=== PATIENT | female | born 1960 | race Caucasian/White ===

== ENCOUNTER 2019-02-24 14:25 | Observation (INO) ==
--- NOTE | 2019-02-24 14:35 | Emergency Department Note ---
Disposition Clinical Impression: Hypoglycemia, Acute kidney injury Disposition: Admitted As Inpatient Condition: Serious Referrals: Kenneth Syed, PAC [Primary Care Provider] - Time of Disposition: 17:43 General Adult HPI - General Stated complaint: Unresponsive Time Seen by Provider: 02/24/19 14:31 Source: EMS Limitations: no limitations Nursing Notes Reviewed: Yes Vital Signs Reviewed: Yes - History of Present Illness HPI Narrative: Patient presents to the ED after being found unresponsive. Neighbors broke into her house and they found her unresponsive. EMS states that they checked her glucose and it read low. She became more alert after some D10. Patient is unsure what meds she is on for diabetes. Medics states she was diagnosed one year ago. Pain Scale: 0 - Related Data Home Medications Medication Instructions Recorded Confirmed Metoprolol [Lopressor] 25 mg PO BID 10/10/15 10/10/15 Naproxen [Naprosyn] 500 mg PO BID 10/10/15 10/10/15 Amlodipine Besylate 10 mg PO DAILY 02/24/19 02/24/19 Aspirin [Lo-Dose Aspirin EC] 81 mg PO DAILY 02/24/19 02/24/19 Atorvastatin [Lipitor] 10 mg PO DAILY 02/24/19 02/24/19 BuPROPion SR (12 HR) [Wellbutrin 150 mg PO BID 02/24/19 02/24/19 SR] Budesonide/Formoterol 160/4.5 2 puff IH BIDR 02/24/19 02/24/19 [Symbicort 160/4.5] Escitalopram [Lexapro] 10 mg PO DAILY 02/24/19 02/24/19 Gabapentin [Neurontin] 300 mg PO QAM 02/24/19 02/24/19 Gabapentin [Neurontin] 600 mg PO HS 02/24/19 02/24/19 Glimepiride [Amaryl] 2 mg PO DAILY 02/24/19 02/24/19 Lisinopril/Hydrochlorothiazide 1 each PO DAILY 02/24/19 02/24/19 [Zestoretic 10-12.5 mg Tablet] Metformin HCl [Glucophage] 1,000 mg PO BID 02/24/19 02/24/19 Previous Rx's Medication Instructions Recorded Albuterol Sulfate [Ventolin Hfa] 2 puff IH Q4H PRN #1 hfa.aer.ad 03/21/17 Allergies Allergy/AdvReac Type Severity Reaction Status Date / Time codeine Allergy See Verified 10/04/15 14:17 Comments All systems ED: reviewed and negative except as stated. Constitutional: Denies: fever Cardiovascular: Denies: chest pain Respiratory: Denies: dyspnea Gastrointestinal: Reports: nausea Past Medical History - Past Medical History Attestation: Yes The following information was validated with the patient. Source: patient Medical history: Reports: asthma, diabetes, hyperlipidemia, hypertension Psychiatric history: Reports: no psych history SHOWCASE [employer]ER history: Reports: no SHOWCASE [employer]ER history - Social History Smoking Status: Current every day smoker Smokeless Tobacco Status: No Alcohol use: Reports: none Drug use: Reports: none Physical Exam Patient rolling around on bed. Knows her name. Does not know where she has what year it is. Moving all extremities. - General Limitations: no limitations General appearance: alert, in distress - Head Head exam: atraumatic, normocephalic - ENT ENT exam: normal exam - Chest Chest inspection: Present: normal inspection, symmetric chest wall rise - Respiratory Respiratory exam: Present: normal lung sounds bilaterally. Absent: respiratory distress - Cardiovascular Cardiovascular exam: Present: regular rate, normal rhythm - Abdominal Exam Abdominal exam: Present: soft, Non-Tender - Neurological Exam Neurological exam: Present: alert - Psychiatric Psychiatric exam: Present: agitated, anxious - Skin Skin exam: Present: warm Course - Reevaluation(s) Reevaluation #1: Patient reevaluated. More awake and alert at this time. More cooperative. Now no she is at the hospital. Family present at bedside. Mom states she tried to call or 9:30 this morning with no answer. By 11:30 she called a neighbor to break in the house. They found her unresponsive. Mom states that she has been sick for several days. She went to an urgent care was started on a "strong antibiotic" for UTI. She has been weak. She has been passing out. She has been telling her to check her sugar but she has not. All Questions answered. Starting D5 normal. Patient is on glimmpiride and metformin. Time: 15:13 Reevaluation #2: Patient reevaluated. Sleeping but arousable. Blood sugar checked and it was 52. We will give her a half amp of D50. Calling pharmacy to obtain the D5 that was ordered earlier. CT head pending. Urinalysis is clear. Family is unsure if she has ever been told her kidney function is abnormal. She goes her primary care physician who since about. She has not been eating or drinking well since she had the UTI. Question of the elevated creatinine is from dehydration. She has received approximately 1 L of normal saline here. We will start the D5 at 75. We will call for admission following her head CT. Time: 16:20 Reevaluation #3: D50 given. D5 started. Diet ordered. Awaiting head CT and will admit. Time: 16:34 Additional Reevaluation(s): Repeat blood sugar at 1730 was in the 70s. We will up her D5-[address] Reilly for admission. - Consultations Consultation #1: Dr Reilly accepts Time: 17:45 Vital Signs Temperature 97.4 F L 02/24/19 14:28 Pulse Rate 85 02/24/19 14:28 Respiratory Rate 20 02/24/19 14:28 Blood Pressure 116/64 02/24/19 14:28 O2 Sat by Pulse Oximetry 97 02/24/19 14:28 Temperature 97.4 F L 02/24/19 14:28 Pulse Rate 90 02/24/19 15:55 Respiratory Rate 16 02/24/19 15:55 Blood Pressure 99/61 02/24/19 15:55 O2 Sat by Pulse Oximetry 99 02/24/19 15:55 Oxygen Delivery Oxygen Delivery Room Air Medical Decision Making - MDM Narrative Medical decision making narrative: Patient hyperglycemic on a sulfonylurea. Required multiple doses of glucose. Admitted to medicine. - Medical Records Medical records reviewed: Yes I reviewed the patient's medical records. - Lab Data Lab results reviewed: Yes I reviewed the patient's lab results. Result diagrams: 02/24/19 14:43 02/24/19 14:43 Lab Results 02/24/19 02/24/19 02/24/19 Range/Units 14:43 14:43 14:43 WBC 14.3 H (4.3-11.1) K/mcL RBC 3.41 L (3.82-4.97) M/mcL Hgb 10.0 L (11.5-15.4) g/dL Hct 30.2 L (35.3-44.9) % MCV 88.6 (83.0-100.0) fL MCH 29.3 (28.0-33.3) pg MCHC 33.1 (31.6-35.5) g/dL RDW 12.9 (11.5-14.5) % Plt Count 552 H (140-400) K/mcL MPV 9.5 (9.4-12.4) fL Immature Gran % 0.6 (0-4) % Seg Neutrophils % 82.9 % Lymphocytes % 6.2 % Monocytes % 9.7 % Eosinophils % 0.2 % Basophils % 0.4 % Neutrophils # 11.8 H (1.6-8.9) K/mcL Lymphocytes # 0.9 (0.6-4.6) K/mcL Monocytes # 1.4 H (0.0-1.3) K/mcL Eosinophils # 0.0 (0.0-0.6) K/mcL Basophils # 0.1 (0.0-0.2) K/mcL PT 13.3 H (9.4-12.1) Seconds INR 1.2 APTT 24.2 L (26.0-36.0) Seconds Sodium 131 L (136-145) mEq/L Potassium 3.5 (3.5-5.1) mEq/L Chloride 94 L (98-107) mEq/L Carbon Dioxide 29 (23-29) mEq/L BUN 59 H (8-23) mg/dL Creatinine 2.36 H (0.60-1.20) mg/dL Est GFR ( Amer) 25 L (> 60) Est GFR (Non-Af Amer) 21 L (> 60) BUN/Creatinine Ratio 25 (6-26) Glucose 175 H (70-105) mg/dL POC Glucose (70-99) mg/dL Calculated Osmolality 293 (280-300) Calcium 7.6 L (8.6-10.3) mg/dL Total Bilirubin 0.2 L (0.3-1.0) mg/dL Direct Bilirubin 0.1 (0.0-0.2) mg/dL Indirect Bilirubin 0.1 (0.0-1.2) mg/dL AST 20 (13-39) Units/L ALT 14 (7-52) Units/L Alkaline Phosphatase 53 (34-104) Units/L Ammonia (16-53) mcmol/L Creatine Kinase 66 (30-223) Units/L Troponin I 0.03 (< 0.04) ng/mL Serum Total Protein 5.7 L (6.4-8.9) g/dL Albumin 3.1 L (3.5-5.7) g/dL Globulin 2.6 (2.4-3.5) g/dL Albumin/Globulin Ratio 1.2 (1.1-2.2) Urine Color (Yellow) Urine Clarity (Clear) Urine pH (5.0-8.0) pH Units Ur Specific [place] (1.010-1.025) Urine Protein (Neg-Trace) mg/dL Urine Glucose (UA) (Normal) mg/dL Urine Ketones (Negative) mg/dL Urine Blood (Negative) Urine Nitrite (Negative) Urine Bilirubin (Negative) Urine Urobilinogen (Normal) mg/dL Ur Leukocyte Esterase (Negative) Urine Microscopic RBC (0-3) per hpf Urine Microscopic WBC (0-3) per hpf Ur Squamous Epith Cells (None-Few) per lpf Urine Bacteria (None-Few) per hpf Hyaline Casts (None-Few) per lpf Ur Culture Indicated? (NO) Urine Opiates Screen (Lisoio=631) ng/mL Ur Buprenorphine Scrn (Cutoff=5) ng/mL Ur Barbiturates Screen (Pngidp=789) ng/mL Ur Phencyclidine Scrn (Cutoff=25) ng/mL Ur Amphetamines Screen (Ihqnfu=2093) ng/mL U Benzodiazepines Scrn (Dhickc=933) ng/mL Urine Cocaine Screen (Cutoff= 300) ng/mL U Marijuana (THC) Screen (Cutoff = 50) ng/mL Ur Drug Screen Interp Ethyl Alcohol < 10 (Less than 10) mg/dL 02/24/19 02/24/19 02/24/19 Range/Units 14:43 15:51 15:51 WBC (4.3-11.1) K/mcL RBC (3.82-4.97) M/mcL Hgb (11.5-15.4) g/dL Hct (35.3-44.9) % MCV (83.0-100.0) fL MCH (28.0-33.3) pg MCHC (31.6-35.5) g/dL RDW (11.5-14.5) % Plt Count (140-400) K/mcL MPV (9.4-12.4) fL Immature Gran % (0-4) % Seg Neutrophils % % Lymphocytes % % Monocytes % % Eosinophils % % Basophils % % Neutrophils # (1.6-8.9) K/mcL Lymphocytes # (0.6-4.6) K/mcL Monocytes # (0.0-1.3) K/mcL Eosinophils # (0.0-0.6) K/mcL Basophils # (0.0-0.2) K/mcL PT (9.4-12.1) Seconds INR APTT (26.0-36.0) Seconds Sodium (136-145) mEq/L Potassium (3.5-5.1) mEq/L Chloride (98-107) mEq/L Carbon Dioxide (23-29) mEq/L BUN (8-23) mg/dL Creatinine (0.60-1.20) mg/dL Est GFR ( Amer) (> 60) Est GFR (Non-Af Amer) (> 60) BUN/Creatinine Ratio (6-26) Glucose (70-105) mg/dL POC Glucose (70-99) mg/dL Calculated Osmolality (280-300) Calcium (8.6-10.3) mg/dL Total Bilirubin (0.3-1.0) mg/dL Direct Bilirubin (0.0-0.2) mg/dL Indirect Bilirubin (0.0-1.2) mg/dL AST (13-39) Units/L ALT (7-52) Units/L Alkaline Phosphatase (34-104) Units/L Ammonia 20 (16-53) mcmol/L Creatine Kinase (30-223) Units/L Troponin I (< 0.04) ng/mL Serum Total Protein (6.4-8.9) g/dL Albumin (3.5-5.7) g/dL Globulin (2.4-3.5) g/dL Albumin/Globulin Ratio (1.1-2.2) Urine Color Yellow (Yellow) Urine Clarity Cloudy A (Clear) Urine pH 5.0 (5.0-8.0) pH Units Ur Specific [place] 1.014 (1.010-1.025) Urine Protein Negative (Neg-Trace) mg/dL Urine Glucose (UA) Normal (Normal) mg/dL Urine Ketones Negative (Negative) mg/dL Urine Blood Negative (Negative) Urine Nitrite Negative (Negative) Urine Bilirubin Negative (Negative) Urine Urobilinogen Normal (Normal) mg/dL Ur Leukocyte Esterase Negative (Negative) Urine Microscopic RBC 3-5 H (0-3) per hpf Urine Microscopic WBC 0-3 (0-3) per hpf Ur Squamous Epith Cells Many H (None-Few) per lpf Urine Bacteria None Seen (None-Few) per hpf Hyaline Casts Few (None-Few) per lpf Ur Culture Indicated? NO (NO) Urine Opiates Screen Negative (Sbizvz=085) ng/mL Ur Buprenorphine Scrn Negative (Cutoff=5) ng/mL Ur Barbiturates Screen Negative (Mcmloe=987) ng/mL Ur Phencyclidine Scrn Negative (Cutoff=25) ng/mL Ur Amphetamines Screen Negative (Ijtuyb=2170) ng/mL U Benzodiazepines Scrn Negative (Lwbgeu=438) ng/mL Urine Cocaine Screen Negative (Cutoff= 300) ng/mL U Marijuana (THC) Screen Negative (Cutoff = 50) ng/mL Ur Drug Screen Interp See Below Ethyl Alcohol (Less than 10) mg/dL 02/24/19 02/24/19 02/24/19 Range/Units 16:18 16:54 17:26 WBC (4.3-11.1) K/mcL RBC (3.82-4.97) M/mcL Hgb (11.5-15.4) g/dL Hct (35.3-44.9) % MCV (83.0-100.0) fL MCH (28.0-33.3) pg MCHC (31.6-35.5) g/dL RDW (11.5-14.5) % Plt Count (140-400) K/mcL MPV (9.4-12.4) fL Immature Gran % (0-4) % Seg Neutrophils % % Lymphocytes % % Monocytes % % Eosinophils % % Basophils % % Neutrophils # (1.6-8.9) K/mcL Lymphocytes # (0.6-4.6) K/mcL Monocytes # (0.0-1.3) K/mcL Eosinophils # (0.0-0.6) K/mcL Basophils # (0.0-0.2) K/mcL PT (9.4-12.1) Seconds INR APTT (26.0-36.0) Seconds Sodium (136-145) mEq/L Potassium (3.5-5.1) mEq/L Chloride (98-107) mEq/L Carbon Dioxide (23-29) mEq/L BUN (8-23) mg/dL Creatinine (0.60-1.20) mg/dL Est GFR ( Amer) (> 60) Est GFR (Non-Af Amer) (> 60) BUN/Creatinine Ratio (6-26) Glucose (70-105) mg/dL POC Glucose 52 L 97 65 L (70-99) mg/dL Calculated Osmolality (280-300) Calcium (8.6-10.3) mg/dL Total Bilirubin (0.3-1.0) mg/dL Direct Bilirubin (0.0-0.2) mg/dL Indirect Bilirubin (0.0-1.2) mg/dL AST (13-39) Units/L ALT (7-52) Units/L Alkaline Phosphatase (34-104) Units/L Ammonia (16-53) mcmol/L Creatine Kinase (30-223) Units/L Troponin I (< 0.04) ng/mL Serum Total Protein (6.4-8.9) g/dL Albumin (3.5-5.7) g/dL Globulin (2.4-3.5) g/dL Albumin/Globulin Ratio (1.1-2.2) Urine Color (Yellow) Urine Clarity (Clear) Urine pH (5.0-8.0) pH Units Ur Specific [place] (1.010-1.025) Urine Protein (Neg-Trace) mg/dL Urine Glucose (UA) (Normal) mg/dL Urine Ketones (Negative) mg/dL Urine Blood (Negative) Urine Nitrite (Negative) Urine Bilirubin (Negative) Urine Urobilinogen (Normal) mg/dL Ur Leukocyte Esterase (Negative) Urine Microscopic RBC (0-3) per hpf Urine Microscopic WBC (0-3) per hpf Ur Squamous Epith Cells (None-Few) per lpf Urine Bacteria (None-Few) per hpf Hyaline Casts (None-Few) per lpf Ur Culture Indicated? (NO) Urine Opiates Screen (Gmmcam=977) ng/mL Ur Buprenorphine Scrn (Cutoff=5) ng/mL Ur Barbiturates Screen (Obabxa=406) ng/mL Ur Phencyclidine Scrn (Cutoff=25) ng/mL Ur Amphetamines Screen (Ydbmgu=2525) ng/mL U Benzodiazepines Scrn (Forlsg=575) ng/mL Urine Cocaine Screen (Cutoff= 300) ng/mL U Marijuana (THC) Screen (Cutoff = 50) ng/mL Ur Drug Screen Interp Ethyl Alcohol (Less than 10) mg/dL - Radiology Data Radiology results reviewed: Yes I reviewed the patient's radiology results. Chest X-Ray 02/24/19 14:31 IMPRESSION: No acute airspace disease identified. D/ / Dio Quintana / Dio Quintana Interpreting Provider: Dio Quintana Head CT 02/24/19 14:32 IMPRESSION: No acute intracranial abnormality. Age related changes including chronic small vessel ischemic disease and cerebral atrophy. D/ / Simi Monge MD / Simi Monge MD Interpreting Provider: Simi Monge MD - EKG Data EKG #1 EKG attestation: Yes I reviewed and interpreted this EKG. EKG results narrative: Normal sinus rhythm at 82. Normal ST segments. Normal QRS complexes. Unchanged when compared to EKG in 2016. Critical Care Time Critical Care Time: Yes Total Critical Care Time: 45 Attestation: Chest X-Ray 02/24/19 14:31 IMPRESSION: No acute airspace disease identified. D/ / Dio Quintana / Dio Quintana Interpreting Provider: Dio Quintana Head CT 02/24/19 14:32
[2019-02-24 14:59] LABS: White Blood Count 14.3 K/mcL (4.3-11.1)
[2019-02-24 15:00] LABS: Basophils # 0.1 K/mcL (0.0-0.2); Basophils % 0.4 %; Eosinophils % 0.2 %; Hematocrit 30.2 % (35.3-44.9); Immature Granulocytes % 0.6 % (0-4); Lymphocytes # 0.9 K/mcL (0.6-4.6); Lymphocytes % 6.2 %; Mean Corpuscular HGB Conc 33.1 g/dL (31.6-35.5); Mean Corpuscular Hemoglobin 29.3 pg (28.0-33.3); Mean Corpuscular Volume 88.6 fL (83.0-100.0); Mean Platelet Volume 9.5 fL (9.4-12.4); Monocytes # 1.4 K/mcL (0.0-1.3); Monocytes % 9.7 %; Neutrophils # 11.8 K/mcL (1.6-8.9); Platelet Count 552 K/mcL (140-400); Red Blood Count 3.41 M/mcL (3.82-4.97); Red Cell Distribution Width 12.9 % (11.5-14.5); Segmented Neutrophils % 82.9 %
[2019-02-24 15:07] LABS: INR 1.2; Prothrombin Time 13.3 Seconds (9.4-12.1)
[2019-02-24 15:09] LABS: Activated Partial Thrombo Time 24.2 Seconds (26.0-36.0)
[2019-02-24] MEDS ORDERED: D5% in 0.9% NACL 1,000 ML IVC SCH (15:15)
[2019-02-24 15:26] LABS: Alanine Aminotransferase 14 Units/L (7-52); Albumin 3.1 g/dL (3.5-5.7); Albumin/Globulin Ratio 1.2 (1.1-2.2); Alkaline Phosphatase 53 Units/L (34-104); Aspartate Amino Transferase 20 Units/L (13-39); BUN/Creatinine Ratio 25 (6-26); Bilirubin,Direct 0.1 mg/dL (0.0-0.2); Bilirubin,Indirect 0.1 mg/dL (0.0-1.2); Bilirubin,Total 0.2 mg/dL (0.3-1.0); Blood Urea Nitrogen 59 mg/dL (8-23); Calcium 7.6 mg/dL (8.6-10.3); Carbon Dioxide 29 mEq/L (23-29); Chloride 94 mEq/L (98-107); Creatine Kinase 66 Units/L (30-223); Ethanol < 10 mg/dL (Less than 10); Globulin 2.6 g/dL (2.4-3.5); Glucose 175 mg/dL (70-105); Osmolality,Calculated 293 (280-300); Potassium 3.5 mEq/L (3.5-5.1); Sodium 131 mEq/L (136-145); Total Protein 5.7 g/dL (6.4-8.9); Troponin I 0.03 ng/mL (< 0.04); eGFR For African Americans 25 (> 60); eGFR For Non-African Americans 21 (> 60)
[2019-02-24 16:02] LABS: Bilirubin,Urine Negative (Negative); Blood,Urine Negative (Negative); Clarity,Urine Cloudy (Clear); Color,Urine Yellow (Yellow); Glucose,Urine (UA) Normal (Normal); Ketones,Urine Negative (Negative); Leukocyte Esterase,Urine Negative (Negative); Nitrite,Urine Negative (Negative); Protein,Urine Negative (Neg-Trace); Specific Gravity,Urine 1.014 (1.010-1.025); Urobilinogen,Urine Normal (Normal)
[2019-02-24 16:04] LABS: Bacteria,Urine None Seen per hpf (None-Few); Hyaline Casts,Urine Few per lpf (None-Few); Squamous Epithelial Cell,Urine Many per lpf (None-Few); WBC,Urine 0-3 per hpf (0-3)
[2019-02-24 16:14] LABS: Amphetamine Screen,Urine Negative ng/mL (Cutoff=1000); Barbiturate Screen,Urine Negative ng/mL (Cutoff=200); Benzodiazepines Screen,Urine Negative ng/mL (Cutoff=200); Cannabinoid Screen,Urine Negative ng/mL (Cutoff = 50); Cocaine Screen,Urine Negative ng/mL (Cutoff= 300); Opiate Screen,Urine Negative ng/mL (Cutoff=300); Phencyclidine Screen,Urine Negative ng/mL (Cutoff=25)
[2019-02-24] MEDS ORDERED: *HR* Dextrose 50 % in Water (Syg) 50 ML SYRINGE IVP ONE ×3 (16:19→20:01)
[2019-02-24] MEDS ORDERED: *HR* Dextrose 50 % in Water (Syg) 50 ML SYRINGE ONE ×2 (16:25→20:03)
[2019-02-24] MEDS ORDERED: Naloxone 0.4 MG/ML INJ IVP PRN (18:07)
[2019-02-24] MEDS ORDERED: Ondansetron 4 MG/2 ML VIAL IVP PRN (18:07)
[2019-02-24] MEDS ORDERED: Mag Hydrox/Al Hydrox/Simeth 30 ML UDC PO PRN (18:07)
[2019-02-24] MEDS ORDERED: 0.9 % Sodium Chloride 1,000 ML IVC SCH (18:15)
[2019-02-24] MEDS ORDERED: Ipratropium/Albuterol Neb 3 ML IH PRN (18:20)
--- NOTE | 2019-02-24 18:20 | Internal Med History&Physical ---
Date of Encounter: 02/24/19 Time of Encounter: 18:14 Internal Medicine - H&P: HPI Chief complaint: AMS Admitted From: Home History of present illness: Ms. Betancourt is a 58 year old female with history of diabetes mellitus on oral medication history of high blood pressure history of anxiety depression, present to the ER with altered mental status. I did get history from the patient's mother , the patient is confused and poor historian. Patient mother states that the patient was sick last week because of acute urinary tract infection on she was prescribed oral antibiotic however she could not take the antibiotic because of the frequent vomiting, low-grade fever and sweating, and then the patient was disoriented yesterday. Today patient mother tried to call the patient however could not get her, then they found the patient on the ground unresponsive, they called 911 and they found blood sugar is low, was given dextrose 50 and in the ER the blood sugar was 52, started on dextrose 5 infusion/, so the patient was found to have acute kidney injury with serum creatinine 2.3, I do not have her baseline. CT head nonacute chest x-ray and acute patient also has leukocytosis. At the time of my assessment the patient is alert but confused able to answer some question, patient denied chest pain or shortness of breath. Denied abdomin al pain or flank pain. Patient is active smoker , she smoke 1 pack per day for 30 years as per her mother, and also the patient has history of COPD Past Med Surg Social Fam HX - Past Medical History Medical history: asthma, diabetes, hyperlipidemia, hypertension Psychiatric history: no psych history - Social History Smoking Status: Current every day smoker Smokeless Tobacco Status: No Alcohol use: none Drug use: none Internal Medicine - H&P: Meds Metoprolol [Lopressor] 25 mg PO BID 10/10/15 [History] Naproxen [Naprosyn] 500 mg PO BID 10/10/15 [History] Albuterol Sulfate [Ventolin Hfa] 2 puff IH Q4H PRN #1 hfa.aer.ad 11/01/16 [Rx] Amlodipine Besylate 10 mg PO DAILY 02/24/19 [History] Aspirin [Lo-Dose Aspirin EC] 81 mg PO DAILY 02/24/19 [History] Atorvastatin [Lipitor] 10 mg PO DAILY 02/24/19 [History] BuPROPion SR (12 HR) [Wellbutrin SR] 150 mg PO BID 02/24/19 [History] Budesonide/Formoterol 160/4.5 [Symbicort 160/4.5] 2 puff IH BIDR 02/24/19 [History] Escitalopram [Lexapro] 10 mg PO DAILY 02/24/19 [History] Gabapentin [Neurontin] 300 mg PO QAM 02/24/19 [History] Gabapentin [Neurontin] 600 mg PO HS 02/24/19 [History] Glimepiride [Amaryl] 2 mg PO DAILY 02/24/19 [History] Lisinopril/Hydrochlorothiazide [Zestoretic 10-12.5 mg Tablet] 1 each PO DAILY 02/24/19 [History] Metformin HCl [Glucophage] 1,000 mg PO BID 02/24/19 [History] Allergy/AdvReac Type Severity Reaction Status Date / Time codeine Allergy See Verified 10/04/15 14:17 Comments All Systems PM: A 10-system review of systems was performed and is negative for pertinent findings except as documented above in the HPI. Review of systems: Review of system: Regarding cardiology respiratory GI endocrine hematology musculoskeletal all negative except for multiple was mentioned in the H&P - Constitutional Vitals: Temp Pulse Resp BP Pulse Ox 97.4 F L 81 18 100/61 96 02/24/19 14:28 02/24/19 17:15 02/24/19 17:15 02/24/19 17:15 02/24/19 17:15 Exam: Physical examination: Gen.: Patient is alert, confused, not in respiratory distress of pain HEENT: perrla , EOMI, no thyroid gland enlargement, no neck mass, supple neck Heart: S1 and S2 luiz, normal sinus rhythm, no cardiac murmur no gallop rhythm Chest: Air entry equal bilaterally, decreased breathing, mild wheezing wheezing, no crackles or crepitation Abdomen: Soft nontender nondistended positive bowel sounds, no organomegaly Extremities: No pitting edema, peripheral pulses palpable, no cyanosis t enderness Neuro: Able to move all 4 limbs, Internal Med - H&P Results - Labs CBC & Chem 7: 02/24/19 14:43 02/24/19 14:43 Labs: Short CBC 02/24/19 Range/Units 14:43 WBC 14.3 H (4.3-11.1) K/mcL Hgb 10.0 L (11.5-15.4) g/dL Hct 30.2 L (35.3-44.9) % Plt Count 552 H (140-400) K/mcL Neutrophils # 11.8 H (1.6-8.9) K/mcL BMP 02/24/19 14:43 Sodium 131 L Potassium 3.5 Chloride 94 L Carbon Dioxide 29 BUN 59 H Creatinine 2.36 H Glucose 175 H Calcium 7.6 L Cardiac Enzymes 02/24/19 Range/Units 14:43 Troponin I 0.03 (< 0.04) ng/mL Liver Function 02/24/19 Range/Units 14:43 Total Bilirubin 0.2 L (0.3-1.0) mg/dL Direct Bilirubin 0.1 (0.0-0.2) mg/dL AST 20 (13-39) Units/L ALT 14 (7-52) Units/L Alkaline Phosphatase 53 (34-104) Units/L Albumin 3.1 L (3.5-5.7) g/dL Urine 02/24/19 Range/Units 15:51 Urine Color Yellow (Yellow) Urine Clarity Cloudy A (Clear) Urine pH 5.0 (5.0-8.0) pH Units Ur Specific [place] 1.014 (1.010-1.025) Urine Protein Negative (Neg-Trace) mg/dL Urine Glucose (UA) Normal (Normal) mg/dL - Impressions ITS Impressions Chest X-Ray 02/24/19 14:31 IMPRESSION: No acute airspace disease identified. D/ / Dio Quintnaa / Dio Quintana Interpreting Provider: Dio Quintana Head CT 02/24/19 14:32 IMPRESSION: No acute intracranial abnormality. Age related changes including chronic small vessel ischemic disease and cerebral atrophy. D/ / Simi Monge MD / Simi Monge MD Interpreting Provider: Simi Monge MD - Assessment and Plan (1) Altered mental state Current Visit: Yes Status: Acute Assessment and plan: Most likely metabolic encephalopathy secondary to hypoglycemia Continue on dextrose infusion 75 mL per hour and check blood glucose every 1 hour Keep the patient nothing by mouth swallow evaluation CT head non acute Qualifiers: Altered mental status type: unspecified Qualified Code(s): R41.82 - Altered mental status, unspecified (2) Hypertension Current Visit: Yes Status: Acute Assessment and plan: BP is soft hold blood pressure medication Qualifiers: Hypertension type: unspecified Qualified Code(s): I10 - Essential (primary) hypertension (3) Acute kidney injury Current Visit: Yes Status: Acute Assessment and plan: Could be secondary to vomiting poor intake and UTI *Patient taking nephrotoxic medication at home including SWETHA inhibitor and NSAID Hold nephrotoxic medication Continue on IV fluids Check a bladder scan Start empirically on IV antibiotic because blood pressure is soft Check blood culture and urine culture Check lactic acid (4) Hypoglycemia Current Visit: Yes Status: Acute Assessment and plan: Secondary to oral hypoglycemic agent and acute kidney injury Continue on dextrose IV fluid Closer monitor plasma glucose every one hour (5) COPD (chronic obstructive pulmonary disease) Current Visit: Yes Status: Chronic Assessment and plan: stable continue on BT as needed CXR non acute mild wheezing on examination check ABG Qualifiers: COPD type: unspecified COPD Qualified Code(s): J44.9 - Chronic obstructive pulmonary disease, unspecified - Time Spent With Patient Total time spent is greater than 50% in coordination of care (as documented) at patient's floor/unit and/or counseling patient:
[2019-02-24] MEDS ORDERED: D5% in Water 1,000 ML IVC SCH (18:30)
[2019-02-24] MEDS ORDERED: cefTRIAXone 1,000 MG in Water for inj. (sterile) 10 ML IVP SCH (19:00)
[2019-02-24 19:06] LABS: Chol/HDL Ratio 1.9 (0-4.9); Magnesium 1.2 mg/dL (1.6-2.6); Phosphorous 2.6 mg/dL (2.7-4.5)
[2019-02-24] MEDS: D10% in Water 500 ML IVC SCH (20:26)
[2019-02-24] MEDS: Budesonide/Formoterol 160/4.5 1 PUFF INH IH SCH (22:23)
[2019-02-24 23:12] LABS: ABG Base Excess 5 mEq/L (-2 to 3); ABG HCO3 29 mEq/L (21-27); ABG Oxygen Saturation 97 % (95-98); ABG PCO2 45 mmHg (35-45); ABG PH 7.43 pH Units (7.32-7.45); ABG PO2 86 mmHg (85-104); ABG TCO2 31 mEq/L (20-26)
[2019-02-25] MEDS: *HR* Heparin 5,000 UNIT/ML VIAL SQ SCH ×4 (01:32→22:16)
[2019-02-25] MEDS: D10% in Water 500 ML IVC SCH (01:44)
[2019-02-25] MEDS: Budesonide/Formoterol 160/4.5 1 PUFF INH IH SCH ×2 (08:12→19:59)
[2019-02-25 08:25] LABS: Basophils % 0.3 %; Eosinophils # 0.1 K/mcL (0.0-0.6); Eosinophils % 0.7 %; Hematocrit 30.8 % (35.3-44.9); Hemoglobin 9.8 g/dL (11.5-15.4); Immature Granulocytes % 0.7 % (0-4); Lymphocytes # 2.1 K/mcL (0.6-4.6); Lymphocytes % 15.3 %; Mean Corpuscular HGB Conc 31.8 g/dL (31.6-35.5); Mean Corpuscular Hemoglobin 28.7 pg (28.0-33.3); Mean Corpuscular Volume 90.3 fL (83.0-100.0); Mean Platelet Volume 9.9 fL (9.4-12.4); Monocytes # 1.7 K/mcL (0.0-1.3); Monocytes % 12.3 %; Neutrophils # 9.7 K/mcL (1.6-8.9); Platelet Count 587 K/mcL (140-400); Red Blood Count 3.41 M/mcL (3.82-4.97); Red Cell Distribution Width 13.4 % (11.5-14.5); Segmented Neutrophils % 70.7 %; White Blood Count 13.7 K/mcL (4.3-11.1)
[2019-02-25] MEDS: Aspirin Enteric Coated 81 MG Tablet PO SCH (08:40)
[2019-02-25 08:45] LABS: Albumin/Globulin Ratio 1.2 (1.1-2.2); Bilirubin,Total 0.2 mg/dL (0.3-1.0); Calcium 8.3 mg/dL (8.6-10.3); Globulin 2.5 g/dL (2.4-3.5); Magnesium 1.4 mg/dL (1.6-2.6); Phosphorous 2.2 mg/dL (2.7-4.5); Potassium 3.3 mEq/L (3.5-5.1); Total Protein 5.5 g/dL (6.4-8.9)
[2019-02-25] MEDS ORDERED: Potassium Phosphate 44 MEQ in 0.9 % Sodium Chloride 250 ML IVPB ONE (12:29)
[2019-02-25] MEDS ORDERED: MetroNIDAZOLE 500 MG/100 ML 500 MG/100 ML BAG IVPB SCH (12:29)
--- NOTE | 2019-02-25 12:33 | Internal Med Progress Note ---
Hospitalist Progress Note - Encounter Date of Encounter: 02/25/19 Time of Encounter: 12:32 - Subjective Interval History: Patient seen and examined earlier today with family present at bedside. pt is currently AAO x 3 and states she feels better compared to previous day. She still reports of extreme weakness but is maintaining her mentation. Reports of severe right lower quadrant pain but denies any nausea or vomiting. Pt reports of recently being treated for a UTI. she states she has been ill at home and has had a decrease in appetite but has been taking her home meds despite decrease in diet. Denies any chest pain,sob, n/v, fever, or chills at this time. Ten point ROS is negative except as listed above No overnight events reported CT abd/pelvis was done due to severe abd pain. CT findings reported Diverticulitis/Enteritis. will start Cipro and flagyl - Exam Vitals: Temp Pulse Resp BP Pulse Ox 99.1 F 105 16 108/55 96 02/25/19 11:16 02/25/19 11:16 02/25/19 11:16 02/25/19 11:16 02/25/19 11:16 Exam: General: No acute distress, AAO x 3, fatigued HEENT: EOMI, PERRLA, NC/AT, no scleral icterus Respiratory: Clear to auscultate bilaterally, no wheezing, no rales Cardiovascular: Regular, Rate, Rhythm, No murmurs GI: Soft, normal bowel sounds, RLQ tenderness to palpation, no guarding, no rebound tenderness Ext: No edema, no tenderness, positive pulses Neuro: AAO x 3, no focal deficits Rest of the clinical exam is noncontributory - Summary of Assessment and Plan Summary of Assessment and Plan: Patient is a 58y/o female with PMH of DM, HTN, HLD, tobacco abuse who is admitted for Acute change in mental status and hypoglycemia Assessment/Plan: 1. Altered mental status Likely metabolic encephalopathy secondary to underlying diverticulitis and hypo glycemia mental status back to baseline BG better controled, pt tolerating PO intake IV fluids discontinued 2. Leukocytosis likely secondary to enteritis/diverticulitis CT abd pelvis reviewed will start patient on Ciprofloxacin and Flagyl f/u blood cultures (no growth reported thus far) will continue IV fluids 3. MEHRAN renal function improved from previous day holding home dose of HCTZ/lisinopril at this time continue IV fluids will avoid nephrotoxic agents and renally dose IV abx closely monitor renal function 4. DM type II holding oral antihyperglycemic agents at this time continue sliding scale insulin algorithm monitor FS and BG 5. HTN BP within acceptable range despite holding BP meds will continue to closely monitor 6. Electrolyte abnormalities Hypokalemia: K supplemented Hypophosphatemia: Phos supplemented Hypomagnesemia: Mg supplemented continue to monitor electrolytes and replace as needed 7. hx of anxiety and depression continue home medications 8. Tobacco Abuse smoking cessation counseling provided pt refused nicotine supplementation therapy DVT ppx: Heparin SQ Care plan discussed with patient/RN/family/case management/social work associate - Time Spent with Patient Total time spent is greater than 50% in coordination of care (as documented) at patient's floor/unit and/or counseling patient: Internal Medicine: Result - Labs CBC & Chem 7: 02/25/19 07:37 02/25/19 07:37 Labs: Short CBC 02/24/19 02/25/19 Range/Units 14:43 07:37 WBC 14.3 H 13.7 H (4.3-11.1) K/mcL Hgb 10.0 L 9.8 L (11.5-15.4) g/dL Hct 30.2 L 30.8 L (35.3-44.9) % Plt Count 552 H 587 H (140-400) K/mcL Neutrophils # 11.8 H 9.7 H (1.6-8.9) K/mcL BMP 02/24/19 02/25/19 14:43 07:37 Sodium 131 L 139 Potassium 3.5 3.3 L Chloride 94 L 100 Carbon Dioxide 29 31 H BUN 59 H 35 H Creatinine 2.36 H 1.50 H Glucose 175 H 128 H Calcium 7.6 L 8.3 L Cardiac Enzymes 02/24/19 Range/Units 14:43 Troponin I 0.03 (< 0.04) ng/mL Liver Function 02/24/19 02/25/19 Range/Units 14:43 07:37 Total Bilirubin 0.2 L 0.2 L (0.3-1.0) mg/dL Direct Bilirubin 0.1 (0.0-0.2) mg/dL AST 20 19 (13-39) Units/L ALT 14 14 (7-52) Units/L Alkaline Phosphatase 53 51 (34-104) Units/L Albumin 3.1 L 3.0 L (3.5-5.7) g/dL Urine 02/24/19 Range/Units 15:51 Urine Color Yellow (Yellow) Urine Clarity Cloudy A (Clear) Urine pH 5.0 (5.0-8.0) pH Units Ur Specific [place] 1.014 (1.010-1.025) Urine Protein Negative (Neg-Trace) mg/dL Urine Glucose (UA) Normal (Normal) mg/dL - ABG Interpretation ABG results: ABG ABG pH 7.43 pH Units (7.32-7.45) 02/24/19 23:09 ABG pCO2 45 mmHg (35-45) 02/24/19 23:09 ABG pO2 86 mmHg (85-104) 02/24/19 23:09 ABG O2 Saturation 97 % (95-98) 02/24/19 23:09 PT/INR, D-dimer PT 13.3 Seconds (9.4-12.1) H 02/24/19 14:43 - Impressions Impressions Chest X-Ray 02/24/19 14:31 IMPRESSION: No acute airspace disease identified. D/ / Dio Quintana / Dio Quintana Interpreting Provider: Dio Quintana Head CT 02/24/19 14:32 IMPRESSION: No acute intracranial abnormality. Age related changes including chronic small vessel ischemic disease and cerebral atrophy. D/ / Simi Monge MD / Simi Monge MD Interpreting Provider: Simi Monge MD Abdomen/Pelvis CT 02/25/19 11:23 IMPRESSION: 1. Inflammatory changes localized primarily to the sigmoid colon most consistent with an uncomplicated diverticulitis. However, there are additional mildly distended edematous small bowel loops. This could be reactive or related to a mild enteritis. 2. Small quantity of ascites. 3. Nonobstructive bilateral nephrolithiasis. 4. Previous splenectomy. D/ / Paul Cano MD / Paul Cano MD Interpreting Provider: Paul Cano MD Consult Discharge Plan - Plan Referrals: Kenneth Syed, PAC [Primary Care Provider] -
[2019-02-25] MEDS: 0.9 % Sodium Chloride 1,000 ML IVC SCH (13:22)
[2019-02-25] MEDS: BuPROPion SR (12 HR) 150 MG TABLET PO SCH (22:16)
[2019-02-25] MEDS: MetroNIDAZOLE 500 MG/100 ML 500 MG/100 ML BAG IVPB SCH (22:17)
[2019-02-26 04:25] LABS: Basophils # 0.1 K/mcL (0.0-0.2); Basophils % 0.3 %; Eosinophils # 0.1 K/mcL (0.0-0.6); Eosinophils % 0.4 %; Hematocrit 29.3 % (35.3-44.9); Hemoglobin 9.7 g/dL (11.5-15.4); Immature Granulocytes % 0.8 % (0-4); Lymphocytes # 2.6 K/mcL (0.6-4.6); Lymphocytes % 14.6 %; Mean Corpuscular HGB Conc 33.1 g/dL (31.6-35.5); Mean Corpuscular Hemoglobin 29.5 pg (28.0-33.3); Mean Corpuscular Volume 89.1 fL (83.0-100.0); Mean Platelet Volume 9.5 fL (9.4-12.4); Monocytes # 2.1 K/mcL (0.0-1.3); Monocytes % 11.6 %; Neutrophils # 12.9 K/mcL (1.6-8.9); Platelet Count 567 K/mcL (140-400); Red Blood Count 3.29 M/mcL (3.82-4.97); Red Cell Distribution Width 13.3 % (11.5-14.5); Segmented Neutrophils % 72.3 %; White Blood Count 17.9 K/mcL (4.3-11.1)
[2019-02-26 04:44] LABS: BUN/Creatinine Ratio 19 (6-26); Blood Urea Nitrogen 20 mg/dL (8-23); Calcium 8.2 mg/dL (8.6-10.3); Carbon Dioxide 29 mEq/L (23-29); Chloride 101 mEq/L (98-107); Glucose 122 mg/dL (70-105); Magnesium 1.4 mg/dL (1.6-2.6); Osmolality,Calculated 292 (280-300); Phosphorous 2.5 mg/dL (2.7-4.5); Potassium 3.8 mEq/L (3.5-5.1); Sodium 139 mEq/L (136-145); eGFR For African Americans > 60 (> 60); eGFR For Non-African Americans 53 (> 60)
[2019-02-26] MEDS: 0.9 % Sodium Chloride 1,000 ML IVC SCH ×2 (05:26→17:49)
[2019-02-26] MEDS: MetroNIDAZOLE 500 MG/100 ML 500 MG/100 ML BAG IVPB SCH ×3 (05:27→22:45)
[2019-02-26] MEDS: *HR* Heparin 5,000 UNIT/ML VIAL SQ SCH ×3 (05:27→22:45)
[2019-02-26] MEDS: Budesonide/Formoterol 160/4.5 1 PUFF INH IH SCH ×2 (07:36→20:43)
[2019-02-26 08:39] LABS: Estimated Average Glucose 131 mg/dl
[2019-02-26] MEDS: BuPROPion SR (12 HR) 150 MG TABLET PO SCH ×2 (09:04→22:45)
[2019-02-26] MEDS: Aspirin Enteric Coated 81 MG Tablet PO SCH (09:05)
[2019-02-26] MEDS ORDERED: *HR* Dextrose 50 % in Water (Syg) 50 ML SYRINGE IVP PRN (14:31)
[2019-02-26] MEDS ORDERED: Dextrose Gel 15 GM/37.5 ML TUBE PO PRN ×2 (14:31)
[2019-02-26] MEDS ORDERED: D5% in Water 1,000 ML IVC PRN (14:31)
--- NOTE | 2019-02-26 14:34 | Internal Med Progress Note ---
Hospitalist Progress Note - Encounter Date of Encounter: 02/26/19 Time of Encounter: 14:32 - Subjective Interval History: Patient seen and examined earlier today. states she still is very fatigued but feels better compared to previous day. reports resolution of abd pain but states she is not able to tolerate the ADA diet as it is making her feel nauseous. Will change to full liquid diet and advance as tolerated. No overnight events reported Ten point ROS is negative except as listed above - Exam Vitals: Temp Pulse Resp BP Pulse Ox 98.5 F 66 17 109/60 95 02/26/19 10:59 02/26/19 10:59 02/26/19 10:59 02/26/19 10:59 02/26/19 10:59 Exam: General: No acute distress, AAO x 3, fatigued HEENT: EOMI, NC/AT, no scleral icterus Respiratory: Clear to auscultate bilaterally, no wheezing, no rales Cardiovascular: Regular, Rate, Rhythm, No murmurs GI: Soft, normal bowel sounds, no tenderness, no guarding, no rebound tenderness Ext: No edema, no tenderness, positive pulses Neuro: AAO x 3, no focal deficits Rest of the clinical exam is noncontributory - Summary of Assessment and Plan Summary of Assessment and Plan: Patient is a 58y/o female with PMH of DM, HTN, HLD, tobacco abuse who is admitted for Acute change in mental status and hypoglycemia Assessment/Plan: 1. Altered mental status Likely metabolic encephalopathy secondary to underlying diverticulitis and hypog lycemia mental status back to baseline BG better controled, pt tolerating PO intake 2. Leukocytosis likely secondary to enteritis/diverticulitis CT abd pelvis reviewed continue Ciprofloxacin and Flagyl f/u blood cultures (no growth reported thus far) will continue IV fluids will d/c ADA diet and start full liquid diet anti-emetic support as needed 3. MEHRAN renal function improved from previous day MEHRAN resolved holding home dose of HCTZ/lisinopril at this time continue IV fluids will avoid nephrotoxic agents and renally dose IV abx closely monitor renal function 4. DM type II holding oral antihyperglycemic agents at this time continue sliding scale insulin algorithm monitor FS and BG A1C: 6.2, however patient is on Glimepiride, Metformin at home, which is likely contributing to her hypoglycemia prior to hospitalization 5. HTN BP within acceptable range despite holding BP meds will continue to closely monitor 6. Electrolyte abnormalities Hypokalemia: resolved Hypophosphatemia: Phos supplemented Hypomagnesemia: Mg supplemented continue to monitor electrolytes and replace as needed 7. hx of anxiety and depression continue home medications 8. Tobacco Abuse smoking cessation counseling provided pt refused nicotine supplementation therapy DVT ppx: Heparin SQ Care plan discussed with patient/RN/case management/social services technician - Time Spent with Patient Total time spent is greater than 50% in coordination of care (as documented) at patient's floor/unit and/or counseling patient: Internal Medicine: Result - Labs CBC & Chem 7: 02/26/19 03:56 02/26/19 03:56 Labs: Short CBC 02/26/19 Range/Units 03:56 WBC 17.9 H (4.3-11.1) K/mcL Hgb 9.7 L (11.5-15.4) g/dL Hct 29.3 L (35.3-44.9) % Plt Count 567 H (140-400) K/mcL Neutrophils # 12.9 H (1.6-8.9) K/mcL BMP 02/26/19 03:56 Sodium 139 Potassium 3.8 Chloride 101 Carbon Dioxide 29 BUN 20 Creatinine 1.05 Glucose 122 H Calcium 8.2 L - ABG Interpretation ABG results: ABG ABG pH 7.43 pH Units (7.32-7.45) 02/24/19 23:09 ABG pCO2 45 mmHg (35-45) 02/24/19 23:09 ABG pO2 86 mmHg (85-104) 02/24/19 23:09 ABG O2 Saturation 97 % (95-98) 02/24/19 23:09 PT/INR, D-dimer PT 13.3 Seconds (9.4-12.1) H 02/24/19 14:43 - Impressions Impressions Abdomen/Pelvis CT 02/25/19 11:23 IMPRESSION: 1. Inflammatory changes localized primarily to the sigmoid colon most consistent with an uncomplicated diverticulitis. However, there are additional mildly distended edematous small bowel loops. This could be reactive or related to a mild enteritis. 2. Small quantity of ascites. 3. Nonobstructive bilateral nephrolithiasis. 4. Previous splenectomy. D/ / 02/25/2019 12:30:38 Paul Cano MD / earnold Interpreting Provider: Paul Cano MD Consult Discharge Plan - Plan Referrals: Kenneth Syed, PAC [Primary Care Provider] -
[2019-02-26] MEDS: Insulin LISPRO 300 UNITS/3 ML VIAL SQ SCH ×2 (17:42→22:44)
--- NOTE | 2019-02-27 | Electrocardiograph Report ---
[facility] [employer] Test Date: 2019-02-24 Pat Name: Mimi Betancourt Department: EXAM14 Room: 2A44 Gender: F Segmental Wall Installer: : 1960 Requested By: Bruna See Order Number: [id number] Reading MD: Ascencion Kilpatrick Measurements Intervals [place] Rate: 82 P: 71 WV: 94 QRS: 76 QRSD: 93 T: 54 QT: 420 QTc: 491 Interpretive Statements Sinus rhythm Short WV interval Consider left ventricular hypertrophy Borderline prolonged QT interval Electronically Signed On 02-26-2019 23:58:18 EDT by Ascencion Kilpatrick
[2019-02-27 06:28] LABS: Basophils # 0.1 K/mcL (0.0-0.2); Basophils % 0.3 %; Eosinophils # 0.1 K/mcL (0.0-0.6); Eosinophils % 0.4 %; Hematocrit 28.9 % (35.3-44.9); Hemoglobin 9.5 g/dL (11.5-15.4); Immature Granulocytes % 0.8 % (0-4); Lymphocytes # 2.5 K/mcL (0.6-4.6); Mean Corpuscular HGB Conc 32.9 g/dL (31.6-35.5); Mean Corpuscular Hemoglobin 29.8 pg (28.0-33.3); Mean Corpuscular Volume 90.6 fL (83.0-100.0); Mean Platelet Volume 9.4 fL (9.4-12.4); Monocytes # 1.9 K/mcL (0.0-1.3); Monocytes % 9.3 %; Neutrophils # 15.7 K/mcL (1.6-8.9); Platelet Count 594 K/mcL (140-400); Red Blood Count 3.19 M/mcL (3.82-4.97); Red Cell Distribution Width 13.2 % (11.5-14.5); Segmented Neutrophils % 77.2 %; White Blood Count 20.4 K/mcL (4.3-11.1)
[2019-02-27 06:51] LABS: BUN/Creatinine Ratio 16 (6-26); Blood Urea Nitrogen 13 mg/dL (8-23); Calcium 8.1 mg/dL (8.6-10.3); Carbon Dioxide 26 mEq/L (23-29); Chloride 102 mEq/L (98-107); Glucose 85 mg/dL (70-105); Magnesium 1.1 mg/dL (1.6-2.6); Osmolality,Calculated 287 (280-300); Phosphorous 2.6 mg/dL (2.7-4.5); Potassium 3.7 mEq/L (3.5-5.1); Sodium 139 mEq/L (136-145); eGFR For African Americans > 60 (> 60); eGFR For Non-African Americans > 60 (> 60)
[2019-02-27] MEDS: Budesonide/Formoterol 160/4.5 1 PUFF INH IH SCH ×2 (07:42→21:28)
[2019-02-27] MEDS: MetroNIDAZOLE 500 MG/100 ML 500 MG/100 ML BAG IVPB SCH ×3 (08:04→22:42)
[2019-02-27] MEDS: *HR* Heparin 5,000 UNIT/ML VIAL SQ SCH ×3 (08:06→22:42)
[2019-02-27] MEDS: BuPROPion SR (12 HR) 150 MG TABLET PO SCH ×2 (08:07→22:42)
[2019-02-27] MEDS: Insulin LISPRO 300 UNITS/3 ML VIAL SQ SCH ×4 (08:07→22:21)
[2019-02-27] MEDS: Aspirin Enteric Coated 81 MG Tablet PO SCH (08:07)
[2019-02-27] MEDS ORDERED: Albuterol 2.5 MG/3 ML NEBULIZER IH PRN (08:15)
--- NOTE | 2019-02-27 13:22 | Internal Med Progress Note ---
Hospitalist Progress Note - Encounter Date of Encounter: 02/27/19 Time of Encounter: 13:20 - Subjective Interval History: Patient denies abdominal pain entirely this morning. Able to tolerate by mouth. Wanting to get out of the hospital. - Exam Vitals: Temp Pulse Resp BP Pulse Ox 99.0 F 70 20 144/69 96 02/27/19 11:40 02/27/19 11:40 02/27/19 11:40 02/27/19 11:40 02/27/19 11:40 Exam: General: Ill-appearing and in no acute distress HEENT: No erythema of posterior pharynx. No exudates. Lymphatics: No mandibular or cervical lymphadenopathy Cardiovascular: RRR. No murmurs. No chest wall tenderness. Lungs: Clear to auscelltation bilaterally. Regular chest rise. Abdomen: Non-tender. No rebound or gaurding. Nl bowel sounds. Extremities: No edema. 2+ pulses radial and pedal pulses Skin: No rahses, abrasions, or contusions. Nl cap refill. Psych: Nl attention. A&Ox3 Neuro: tucking machine operator II-XII intact. 5/5 strength. Sensation to light touch and pinprick intact. - Assessment and Plan (1) Acute metabolic encephalopathy Current Visit: Yes Status: Acute Assessment and Plan: Patient with history of rei-iyyyhve-[id number] diabetes type 2 presents with encephalopathy and found to be hypoglycemic and have acute diverticulitis of the colon. -Patient was on metformin and glimepiride as an outpatient. It is likely that, in the setting of infection, the glimepiride caused hypoglycemia -Also had LLQ pain and found to have diverticulitis, which may have caused acute encephalopathy as well -Currently back to her baseline with regards to mental status PLAN: - Treatment per below (2) Diverticulitis large intestine Current Visit: Yes Status: Acute Assessment and Plan: Presented with encephalopathy with left lower quadrant pain and found to have acute diverticulitis. -Abdominal pain has resolved but patient has a persistent leukocytosis that has climbed in recent days -Blood cultures have been negative -On ciprofloxacin and Flagyl currently PLAN: - Continue ciprofloxacin and Flagyl - If no improvement in leukocytosis and x-ray 4 hours, may consider switching antibiotic regimen first reimaging to assess for signs of abscess - Follow up cultures (3) Diabetes Current Visit: Yes Status: Acute Assessment and Plan: Sugars reasonably well controlled with no therapy in the hospital. Became hypoglycemic on orals on presentation. - We will likely restage metformin upon discharge, however, will likely discontinue Glimepiride indefinitely (4) Hypoglycemia Current Visit: Yes Status: Acute Assessment and Plan: See above (5) Acute kidney injury Current Visit: Yes Status: Acute Assessment and Plan: In setting of infection likely prerenal. As now returned to baseline. DVT Prophylaxis: Heparin - Time Spent with Patient Total time spent is greater than 50% in coordination of care (as documented) at patient's floor/unit and/or counseling patient: Greater than 35 minutes Plan of Care Discussed with: patient Internal Medicine: Result - Labs CBC & Chem 7: 02/27/19 05:44 02/27/19 05:44 Labs: Short CBC 02/27/19 Range/Units 05:44 WBC 20.4 H (4.3-11.1) K/mcL Hgb 9.5 L (11.5-15.4) g/dL Hct 28.9 L (35.3-44.9) % Plt Count 594 H (140-400) K/mcL Neutrophils # 15.7 H (1.6-8.9) K/mcL BMP 02/27/19 05:44 Sodium 139 Potassium 3.7 Chloride 102 Carbon Dioxide 26 BUN 13 Creatinine 0.80 Glucose 85 Calcium 8.1 L - ABG Interpretation ABG results: ABG ABG pH 7.43 pH Units (7.32-7.45) 02/24/19 23:09 ABG pCO2 45 mmHg (35-45) 02/24/19 23:09 ABG pO2 86 mmHg (85-104) 02/24/19 23:09 ABG O2 Saturation 97 % (95-98) 02/24/19 23:09 PT/INR, D-dimer PT 13.3 Seconds (9.4-12.1) H 02/24/19 14:43 Consult Discharge Plan - Plan Referrals: Kenneth Syed, PAC [Primary Care Provider] - (3) Diabetes Qualifiers: Diabetes mellitus type: type 2 Diabetes mellitus long term care pharmacist insulin use: without usp use Diabetes mellitus complication status: without complication Qualified Code(s): E11.9 - Type 2 diabetes mellitus without complications
[2019-02-27] MEDS: 0.9 % Sodium Chloride 1,000 ML IVC SCH (18:50)
[2019-02-28 05:55] LABS: Hematocrit 26.7 % (35.3-44.9); Hemoglobin 8.6 g/dL (11.5-15.4); Mean Corpuscular HGB Conc 32.2 g/dL (31.6-35.5); Mean Corpuscular Hemoglobin 29.3 pg (28.0-33.3); Mean Corpuscular Volume 90.8 fL (83.0-100.0); Mean Platelet Volume 9.5 fL (9.4-12.4); Platelet Count 579 K/mcL (140-400); Red Blood Count 2.94 M/mcL (3.82-4.97); Red Cell Distribution Width 13.4 % (11.5-14.5); White Blood Count 16.7 K/mcL (4.3-11.1)
[2019-02-28] MEDS: MetroNIDAZOLE 500 MG/100 ML 500 MG/100 ML BAG IVPB SCH (06:22)
[2019-02-28] MEDS: *HR* Heparin 5,000 UNIT/ML VIAL SQ SCH (06:23)
[2019-02-28 06:33] LABS: BUN/Creatinine Ratio 16 (6-26); Blood Urea Nitrogen 12 mg/dL (8-23); Calcium 7.9 mg/dL (8.6-10.3); Carbon Dioxide 24 mEq/L (23-29); Chloride 101 mEq/L (98-107); Glucose 106 mg/dL (70-105); Osmolality,Calculated 296 (280-300); Potassium 3.7 mEq/L (3.5-5.1); Sodium 143 mEq/L (136-145); eGFR For African Americans > 60 (> 60); eGFR For Non-African Americans > 60 (> 60)
[2019-02-28] MEDS: Budesonide/Formoterol 160/4.5 1 PUFF INH IH SCH (07:34)
[2019-02-28] MEDS: Insulin LISPRO 300 UNITS/3 ML VIAL SQ SCH ×2 (10:10→11:40)
[2019-02-28] MEDS: Aspirin Enteric Coated 81 MG Tablet PO SCH (10:12)
[2019-02-28] MEDS: BuPROPion SR (12 HR) 150 MG TABLET PO SCH (10:12)
[2019-02-28 10:51] VITALS: BP 139/74
--- NOTE | 2019-02-28 11:38 | Discharge Summary ---
Orders not resulted at time of discharge: Pending orders 02/24/19 18:20 Culture,Blood [BC] Stat 02/24/19 18:21 Bedside Swallowing Evaluation [EVAL] Routine Date of Encounter: 02/28/19 Time of Encounter: 11:31 - Discharge Diagnosis (1) Acute metabolic encephalopathy Priority: Primary Status: Acute (2) Diverticulitis large intestine Priority: Secondary Status: Acute Qualifiers: Diverticulitis bleeding: without bleeding Diverticulitis complication: without perforation or abscess Qualified Code(s): K57.32 - Diverticulitis of large intestine without perforation or abscess without bleeding (3) Diabetes Priority: Secondary Status: Acute Qualifiers: Diabetes mellitus type: type 2 Diabetes mellitus termination clerk insulin use: without intermediate use Diabetes mellitus complication status: with hypoglycemia Diabetes mellitus complication detail: without coma Qualified Code(s): E11.649 - Type 2 diabetes mellitus with hypoglycemia without coma (4) Hypoglycemia Priority: Secondary Status: Acute (5) Acute kidney injury Priority: Secondary Status: Acute Hospital course: Ms. Betancourt is a 58 year old female with history of type 2 diabetes on metformin and glimepiride was added with acute metabolic encephalopathy in the setting of hypoglycemia and evidence of acute diverticulitis of the colon on CT imaging. It is likely that, in the setting of infection, the glimepiride caused hypoglycemia. Encephalopathy resolved with correction of hypoglycemia and treatment of infection. Patient is currently back to her baseline with regards to her mental status and has been transitioned to oral antibiotics to treat diverticulitis to complete a 14 day course. Blood sugars low 100s while in the hospital so will hold oral anti-glycemic agents until patient follows up with her primary care provider. Recommend reinitiation of metformin at that time but would recommend holding glimepiride indefinitely. Discharge discussed with: patient - Time Spent with Patient Total time spent providing and/or coordinating discharge services: Time spent: Greater than 30 minutes - Discharge Medications Prescriptions: New Ciprofloxacin [Cipro] 500 mg PO Q12HR #20 tablet metroNIDAZOLE [Flagyl] 500 mg PO TID #30 tablet Continued Naproxen [Naprosyn] 500 mg PO BID Metoprolol [Lopressor] 25 mg PO BID Albuterol Sulfate [Ventolin Hfa] 2 puff IH Q4H PRN #1 hfa.aer.ad PRN Reason: Wheezing Amlodipine Besylate 10 mg PO DAILY Aspirin [Lo-Dose Aspirin EC] 81 mg PO DAILY Atorvastatin [Lipitor] 10 mg PO DAILY Budesonide/Formoterol 160/4.5 [Symbicort 160/4.5] 2 puff IH BIDR BuPROPion SR (12 HR) [Wellbutrin SR] 150 mg PO BID Escitalopram [Lexapro] 10 mg PO DAILY Gabapentin [Neurontin] 300 mg PO QAM Gabapentin [Neurontin] 600 mg PO HS Lisinopril/Hydrochlorothiazide [Zestoretic 10-12.5 mg Tablet] 1 each PO DAILY Discontinued Glimepiride [Amaryl] 2 mg PO DAILY Metformin HCl [Glucophage] 1,000 mg PO BID Home Medications: Metoprolol [Lopressor] 25 mg PO BID 10/10/15 [History] Naproxen [Naprosyn] 500 mg PO BID 10/10/15 [History] Albuterol Sulfate [Ventolin Hfa] 2 puff IH Q4H PRN #1 hfa.aer.ad 11/01/16 [Rx] Amlodipine Besylate 10 mg PO DAILY 02/24/19 [History] Aspirin [Lo-Dose Aspirin EC] 81 mg PO DAILY 02/24/19 [History] Atorvastatin [Lipitor] 10 mg PO DAILY 02/24/19 [History] BuPROPion SR (12 HR) [Wellbutrin SR] 150 mg PO BID 02/24/19 [History] Budesonide/Formoterol 160/4.5 [Symbicort 160/4.5] 2 puff IH BIDR 02/24/19 [History] Escitalopram [Lexapro] 10 mg PO DAILY 02/24/19 [History] Gabapentin [Neurontin] 300 mg PO QAM 02/24/19 [History] Gabapentin [Neurontin] 600 mg PO HS 02/24/19 [History] Lisinopril/Hydrochlorothiazide [Zestoretic 10-12.5 mg Tablet] 1 each PO DAILY 02/24/19 [History] Ciprofloxacin [Cipro] 500 mg PO Q12HR #20 tablet 02/28/19 [Rx] metroNIDAZOLE [Flagyl] 500 mg PO TID #30 tablet 02/28/19 [Rx] Allergies/Adverse Reactions: Allergy/AdvReac Type Severity Reaction Status Date / Time codeine Allergy See Verified 10/04/15 14:17 Comments Date of admission: 02/24/19 19:48 Primary care physician: Kenneth Syed Consults: 02/24/19 18:10 Consult to Physical Therapy [CONS] Routine Comment: Evaluate, develop and implement POC Reason for Consult: weakness Does patient have active BEDREST order?: No Is patient medically & hemodynamically stable?: Yes 02/24/19 21:57 Consult to Nutrition [CONS] Routine Comment: Consulting Provider: NUTRITION Reason for Dietary Consult: MST Score 02/25/19 16:50 Consult to Nurse Navigator [CONS] Routine Comment: COPD 02/26/19 19:28 Consult to Bottomer Operator [CONS] Routine Reason for SW Consult: PT/OT recommending inpatient rehab/swing - Constitutional Vitals: Temp Pulse Resp BP Pulse Ox 98.4 F 66 17 139/74 97 02/28/19 10:49 02/28/19 10:49 02/28/19 10:49 02/28/19 10:49 02/28/19 10:49 Exam: General: Ill-appearing and in no acute distress HEENT: No erythema of posterior pharynx. No exudates. Lymphatics: No mandibular or cervical lymphadenopathy Cardiovascular: RRR. No murmurs. No chest wall tenderness. Lungs: Clear to auscelltation bilaterally. Regular chest rise. Abdomen: Non-tender. No rebound or gaurding. Nl bowel sounds. Extremities: No edema. 2+ pulses radial and pedal pulses Skin: No rahses, abrasions, or contusions. Nl cap refill. Psych: Nl attention. A&Ox3 Neuro: flight instructor II-XII intact. 5/5 strength. Sensation to light touch and pinprick intact. - Patient Status Disposition: Home, Self-Care Condition: Good Functional capacity at discharge: independent ambulation Overall status at discharge: patient is back to baseline - Discharge Instructions Follow Up With: Kenneth Syed, PAC [Primary Care Provider] - Forms: ED Satisfaction Letter - Diet and Activity Activity: increase activity as tolerated Diet: regular diet
[2019-02-28] MEDS ORDERED: metroNIDAZOLE 500 MG TABLET PO SCH (15:00)
== END 2019-02-28 12:44 | disposition home or self-care (01) ==
LOC: CDU 14:25 → EMEROOARM 14:25 → SUATTDRO 19:48 → CDU 20:40 → 2ANU 02-26 16:36
PROVIDERS: ADMIT Internal Medicine; ATTEND Internal Medicine